=== PATIENT | female | born 1945 | race Caucasian/White ===

== ENCOUNTER 2018-06-05 19:46 | Emergency (ER) | payer SELFPAY, OTHER, MEDICARE | END 2018-06-06 01:32 | disposition home or self-care (01) | LOC: E/R 06-06 01:32 | DX: K94.23 Gastrostomy malfunction (principal); I10 Essential (primary) hypertension; Z79.4 Long term (current) use of insulin; Z79.82 Long term (current) use of aspirin | CPT/HCPCS: 43760; 94002; 94003; 99284-25 ==